=== PATIENT | female | born 1950 | race Two or more races ===

== ENCOUNTER 2022-09-12 06:00 | Day surgery (SDC) | payer OTHER ==
[~2022-09-12] VITALS: Ht 167.6 cm; Wt 83.9 kg
[~2022-09-12 06:00] MED LIST: VALSARTAN-HCTZ1 EACH PO
[2022-09-12] MEDS ORDERED: PERCOCET 5-3251 EACH PO (09:25)
[2022-09-12] MEDS ORDERED: PEPCID AC20 MG PO (09:26)
[2022-09-12] MEDS ORDERED: PROTONIX40 MG PO (09:26)
[2022-09-12] MEDS ORDERED: ZOFRAN8 MG PO (09:26)
[2022-09-12] MEDS ORDERED: DICLOFENAC SODI75 MG PO (09:27)
== END 2022-09-12 11:15 | disposition home or self-care (01) ==
LOC: CIR.AMB 06:00
PROVIDERS: ATTEND Surgery
DX: K80.10 Calculus of gallbladder with chronic cholecystitis without obstruction (principal); K80.50 Calculus of bile duct without cholangitis or cholecystitis without obstruction; Z20.822 Contact with and (suspected) exposure to COVID-19; I10 Essential (primary) hypertension